=== PATIENT | male | born 1955 | race Caucasian/White ===

== ENCOUNTER → 2016-11-27 | Outpatient (CLI) | payer BC ==
[~2016-11-27] MED LIST: ACYC5CRE2 TP; AMLO5TAB2 PO; CHOL200024 PO; FLUT16SP NS; LACT460C PO; LOSA100T6 PO; MELA3TAB PO; MELO-184 PO; MULT-658 PO; VITA150T PO; [UNRECOGNIZED DRUG - OTHER] PO; nyquil PO
[2016-11-27 10:46] LABS: PATH.CAST-FLAG NOT PRESENT; SPERM-FLAG NOT PRESENT; SRC-FLAG NOT PRESENT; XTAL-FLAG NOT PRESENT; YLC-FLAG NOT PRESENT
[2016-11-27 11:07] LABS: BLOOD UREA NITROGEN 20 mg/dL (7-18)
[2016-11-27 11:11] LABS: ASPARTATE AMINO TRANSFERASE 14 U/L (15-37)
== END | disposition home or self-care (01) ==
LOC: STAR 09:09
PROVIDERS: ATTEND Orthopaedic Surgery
DX: Z01.818 Encounter for other preprocedural examination (principal); M17.11 Unilateral primary osteoarthritis, right knee
CPT/HCPCS: 36415; 80053; 81001; 85025; 87081; 93005

== ENCOUNTER 2016-12-05 08:27 | Inpatient (IN) | payer BC ==
[2016-11-27 09:38] VITALS: BP 130/89
[~2016-12-05] VITALS: Ht 180.3 cm; Wt 103.4 kg
[~2016-12-05 08:27] MED LIST changes: +EPINEPHRINE 1 MG/ML, 1ML ONE; +KETOROLAC 60 MG/2 ML ONE; +ROPIvacaine/PF 0.2%, 20 ML ONE; +TRANEXAMIC ACID 100 MG/ML, 10ML ONE; +VANCOMYCIN 1,000 MG ONE
[2016-12-05] MEDS ORDERED: LACTATED RINGERS 1,000 ML IV SCH (09:00)
[2016-12-05] MEDS ORDERED: TRAMADOL PO (09:03)
[2016-12-05] MEDS ORDERED: GABEPENTIN PO (09:03)
[2016-12-05] MEDS ORDERED: LIDOCAINE 1%, 2ML ONE (09:13)
[2016-12-05] MEDS ORDERED: LIDOCAINE 1%, 2ML SQ PRN (09:30)
[2016-12-05] MEDS ORDERED: MIDAZOLAM 1 MG/ML, 2ML ONE (09:58)
[2016-12-05] MEDS ORDERED: FENTANYL PF 100 MCG/2ML ONE (09:58)
[2016-12-05] MEDS ORDERED: LABETALOL 5MG/ML, 20ML IV PRN (10:30)
[2016-12-05] MEDS ORDERED: hydrALAzine 20 MG/ML, 1ML IV PRN (10:30)
[2016-12-05] MEDS ORDERED: ONDANSETRON 2MG/ML, 2ML IVPush PRN (10:30)
[2016-12-05] MEDS ORDERED: FENTANYL PF 100 MCG/2ML IV PRN (10:30)
[2016-12-05] MEDS ORDERED: HYDROmorphone 1 MG/ML, 1ML IV PRN ×2 (10:30→13:00)
[2016-12-05] MEDS ORDERED: PROMETHAZINE 25 MG/ML, 1ML IV PRN (10:30)
[2016-12-05] MEDS ORDERED: OXYcodone 5 MG/5 ML ORAL.SOL UDC PO PRN (10:30)
[2016-12-05] MEDS ORDERED: MEPERIDINE/PF 25MG/0.5ML IVPush PRN (10:30)
[2016-12-05] MEDS ORDERED: ACETAMINOPHEN 325 MG TABLET PO PRN (10:30)
[2016-12-05] MEDS ORDERED: BUPIVACAINE/PF-EPI 0.25% 1:200K ONE (10:47)
[2016-12-05] MEDS ORDERED: CEFAZOLIN 1,000 MG ONE (11:02)
[2016-12-05] MEDS ORDERED: ONDANSETRON 2MG/ML, 2ML ONE (11:02)
[2016-12-05] MEDS ORDERED: DEXAMETHASONE 4 MG/ML, 1ML ONE (11:02)
[2016-12-05] MEDS ORDERED: PROPOFOL 10 MG/ML, 20ML ONE (11:02)
[2016-12-05] MEDS ORDERED: TRANEXAMIC ACID 1,000 MG in SODIUM CHLORIDE 0.9% 100 ML IVPB ONE (13:00)
[2016-12-05] MEDS ORDERED: ALUMINUM/MAG/SIMETHICONE 30 ML UDC PO PRN (13:00)
[2016-12-05] MEDS ORDERED: ONDANSETRON 2MG/ML, 2ML IV PRN (13:00)
[2016-12-05] MEDS ORDERED: BISACODYL 10 MG SUPP PR PRN (13:00)
[2016-12-05] MEDS ORDERED: SENNA/DOCUSATE TABLET PO PRN (13:00)
[2016-12-05] MEDS ORDERED: DIPHENHYDRAMINE 25 MG CAPSULE PO PRN (13:00)
[2016-12-05] MEDS ORDERED: PROMETHAZINE 25 MG/ML, 1ML IM PRN (13:00)
[2016-12-05] MEDS ORDERED: ONDANSETRON 4 MG TABLET PO PRN (13:00)
[2016-12-05] MEDS ORDERED: MAGNESIUM HYDROXIDE 8%, 30ML UDC PO PRN (13:00)
[2016-12-05] MEDS ORDERED: ZOLPIDEM 5MG TABLET PO PRN (13:00)
[2016-12-05] MEDS: ACETAMINOPHEN 650 MG/20.3 ML UDC PO SCH ×2 (13:00→19:15)
[2016-12-05] MEDS ORDERED: SCOPOLAMINE PATCH, 1.5MG PATCH.TD72 TD SCH (13:00)
[2016-12-05] MEDS ORDERED: PROMETHAZINE 12.5 MG SUPP PR PRN (13:00)
[2016-12-05] MEDS ORDERED: ACETAMINOPHEN 325 MG TABLET ONE (13:08)
[2016-12-05] MEDS ORDERED: OXYcodone 5 MG/5 ML ORAL.SOL UDC ONE (13:08)
[2016-12-05] MEDS: TAMSULOSIN 0.4 MG CAP.ER.24H PO SCH (14:58)
[2016-12-05] MEDS: D5%-0.45% NACL 1,000 ML IV SCH ×2 (14:58→23:00)
[2016-12-05 15:09] VITALS: BP 137/87
[2016-12-05] MEDS: OXYcodone IR 5MG TABLET PO PRN ×2 (17:50→21:44)
[2016-12-05] MEDS: CEFAZOLIN PMX 2GM/50ML 50 ML IVPB SCH (19:53)
[2016-12-05] MEDS: DOCUSATE 100 MG CAPSULE PO SCH (19:53)
[2016-12-05 20:06] VITALS: BP 117/71
[2016-12-05 23:35] VITALS: BP 119/73
[2016-12-06] MEDS: ACETAMINOPHEN 650 MG/20.3 ML UDC PO SCH ×5 (01:48→23:57)
[2016-12-06] MEDS: OXYcodone IR 5MG TABLET PO PRN ×6 (01:48→23:57)
[2016-12-06] MEDS: CEFAZOLIN PMX 2GM/50ML 50 ML IVPB SCH (03:35)
[2016-12-06 04:16] VITALS: BP 106/62
[2016-12-06] MEDS: D5%-0.45% NACL 1,000 ML IV SCH ×3 (05:47→21:16)
[2016-12-06] MEDS: ASPIRIN 81 MG TABLET EC PO SCH (05:47)
[2016-12-06] MEDS ORDERED: DEXAMETHASONE 4 MG/ML, 1ML IVPush SCH (06:00)
[2016-12-06 06:42] VITALS: BP 103/43
[2016-12-06] MEDS: DOCUSATE 100 MG CAPSULE PO SCH ×2 (09:46→21:16)
[2016-12-06] MEDS: MULTIVITAMINS/MINERALS TABLET PO SCH (09:46)
[2016-12-06] MEDS: TAMSULOSIN 0.4 MG CAP.ER.24H PO SCH (09:46)
[2016-12-06 12:49] VITALS: BP 98/61
[2016-12-06] MEDS: KETOROLAC 30 MG/1 ML IV SCH ×2 (14:13→21:16)
[2016-12-06 19:24] VITALS: BP 108/65
[2016-12-07 02:02] VITALS: BP 121/76
[2016-12-07] MEDS: OXYcodone IR 5MG TABLET PO PRN ×3 (03:42→12:12)
[2016-12-07] MEDS: D5%-0.45% NACL 1,000 ML IV SCH (05:04)
[2016-12-07] MEDS: ASPIRIN 81 MG TABLET EC PO SCH (05:17)
[2016-12-07] MEDS: KETOROLAC 30 MG/1 ML IV SCH (05:17)
[2016-12-07] MEDS: ACETAMINOPHEN 650 MG/20.3 ML UDC PO SCH (05:18)
[2016-12-07 06:25] VITALS: BP 115/72
[2016-12-07] MEDS: TAMSULOSIN 0.4 MG CAP.ER.24H PO SCH (08:11)
[2016-12-07] MEDS: DOCUSATE 100 MG CAPSULE PO SCH (08:11)
[2016-12-07] MEDS: MULTIVITAMINS/MINERALS TABLET PO SCH (08:11)
[2016-12-07 11:45] VITALS: BP 130/79
[2016-12-07] MEDS ORDERED: OXYC5CAP4 PO (13:11)
== END 2016-12-07 13:40 | disposition home or self-care (01) | DRG 470 ==
LOC: ORIP 08:27 → 4NOR 13:58 → DCLOUNGE 12-07 12:40
PROVIDERS: ADMIT Orthopaedic Surgery; ATTEND Orthopaedic Surgery
PROC: 0SRC0J9 Replacement of Right Knee Joint with Synthetic Substitute, Cemented, Open Approach (ICD-10-PCS; principal; 2016-12-05 11:30)
DX: M17.11 Unilateral primary osteoarthritis, right knee (principal); I10 Essential (primary) hypertension; Z87.891 Personal history of nicotine dependence; Z88.1 Allergy status to other antibiotic agents; Z91.041 Radiographic dye allergy status; Z79.899 Other long term (current) drug therapy
CPT/HCPCS: C1713; J0171; J0690; J1100; J1885; J2250; J2405; J2704; J2795; J3010; J3370; J3490; C1776; J7120